=== PATIENT | female | born 1985 | race Caucasian/White ===

== ENCOUNTER → 2016-07-29 | Outpatient (CLI) | payer OTHER | LOC: MW.CHOBGYN 15:23 | PROVIDERS: ATTEND Nurse Practitioner Women's Health | DX: R39.9 Unspecified symptoms and signs involving the genitourinary system (principal) | CPT/HCPCS: 81001 ==

== ENCOUNTER → 2016-08-20 | Outpatient (CLI) | payer OTHER ==
[2016-08-20 10:37] LABS: CHLORIDE,CL 107 mmol/L (98-110); SODIUM,NA 137 mmol/L (136-146)
[2016-08-26 15:03] LABS: HPV 16 Not Detected (NOTDET); HPV 18 Not Detected (NOTDET)
== END ==
LOC: MW.CHOBGYN 09:18
PROVIDERS: ATTEND Nurse Practitioner Women's Health
DX: Z12.4 Encounter for screening for malignant neoplasm of cervix (principal); E66.01 Morbid (severe) obesity due to excess calories; N91.5 Oligomenorrhea, unspecified
CPT/HCPCS: 36415; 80053; 80061; 82627; 82670; 83001; 83002; 84144; 84146; 84402; 84443; 84703; 85025; 87624; G0145

== ENCOUNTER 2016-09-06 17:37 | Emergency (ER) | payer OTHER ==
--- NOTE | 2016-09-06 19:21 | EDM.PDOC ---
ED HPI Trauma - General Chief Complaint: Lower Extremity Injury/Pain Stated Complaint: PT HAS ENLARGE RT LEG CALF Time Seen by Provider: 09/06/16 17:42 Source: Reports: Patient History Limitations: Reports: No limitations - History of Present Illness INITIAL COMMENTS - FREE TEXT/NARRATIVE: History of present illness: [30-year-old female presenting with acute pain to right leg. Patient indicates that she has recently started control is concerned that it could be a blood clot.] Review of systems: As per history of present illness and below otherwise all systems reviewed and negative. Past medical history: As per history of present illness and as reviewed below otherwise noncontributory. Surgical history: As per history of present illness and as reviewed below otherwise noncontributory. Social history: No reported history of drug or alcohol abuse. Family history: As per history of present illness and as reviewed below otherwise noncontributory. Physical exam: HEENT: Atraumatic, normocephalic, pupils reactive, negative for conjunctival pallor or scleral icterus, mucous membranes moist, throat clear, neck supple, nontender, trachea midline. Lungs: Clear to auscultation, breath sounds equal bilaterally, chest nontender. Heart: S1S2, regular, negative for clicks, rubs, or JVD. Abdomen: Soft, nondistended, nontender. Negative for masses or hepatosplenomegaly. Negative for costovertebral tenderness. Pelvis: Stable nontender. Genitourinary: Deferred. Rectal: Deferred. Extremities: Atraumatic, negative for cords or calf pain. Neurovascular unremarkable. Neuro: Awake, alert, oriented. Cranial nerves II through XII unremarkable. Cerebellum unremarkable. Motor and sensory unremarkable throughout. Exam nonfocal. Other than as noted in history of present illness, Global assessment is benign patient does have pain while dorsiflexing the foot at an angle the patient indicates she's has consistent pain in the leg even when not manipulating it so it's not a clear Homans sign Diagnostics: [ venous Doppler of right lower Ravi lucia] Therapeutics: [] Impression: [Muscle] Plan: [OTC's, ice/heat/elevation] Definitive disposition and diagnosis as appropriate pending reevaluation and review of above. Allergies/ADRs: Allergies No Known Allergies Allergy (Verified 09/06/16 18:15) Home Medications: Ambulatory Orders Levonorgestrel-Ethin Estradiol [Falmina-28 Tablet] 1 each PO DAILY 09/06/16 [ Confirmed 09/06/16] Past Medical History - Past Health History Medical/Surgical History: Denies Medical/Surgical History Social & Family History - Family History Family Medical History: Noncontributory - Tobacco Use Smoking Status *Q: Current Every Day Smoker Years of Tobacco use: 10 Packs/Tins Daily: 1 Second Hand Smoke Exposure: No - Recreational Drug Use Recreational Drug Use: No Drug Use in Last 12 Months: No Review of Systems - Review of Systems Review Of Systems: See Below (History of present illness) Trauma Exam - Physical Exam Exam: See Below (History of present illness) Course - Vital Signs Last Recorded V/S: Last Vital Signs Temp 36.4 C 09/06/16 18:17 Pulse 68 09/06/16 18:17 Resp 18 09/06/16 18:17 BP 135/79 09/06/16 18:17 Pulse Ox 97 09/06/16 18:17 - Orders/Labs/Meds Orders: Active Orders 24 hr Category Date Time Status Venous Doppler Lwr Ext Rt [US] Stat Exams 09/06/16 18:21 Taken Departure - Departure Time of Disposition: 20:15 Disposition: Home, Self-Care 01 Condition: good Clinical Impression: Pain of right calf Forms: ED Department Discharge Additional Instructions: The following information is given to patients seen in the emergency department who are being discharged to home. This information is to outline your options for follow-up care. We provide all patients seen in our emergency department with a follow-up referral. The need for follow-up, as well as the timing and circumstances, are variable depending upon the specifics of your emergency department visit. If you don't have a primary care physician on staff, we will provide you with a referral. We always advise you to contact your personal physician following an emergency department visit to inform them of the circumstance of the visit and for follow-up with them and/or the need for any referrals to a consulting specialist. The emergency department will also refer you to a specialist when appropriate. This referral assures that you have the opportunity for follow-up care with a specialist. All of these measure are taken in an effort to provide you with optimal care, which includes your follow-up. Under all circumstances we always encourage you to contact your private physician who remains a resource for coordinating your care. When calling for follow-up care, please make the office aware that this follow-up is from your recent emergency room visit. If for any reason you are refused follow-up, please contact the [facility] Emergency Department at and asked to speak to the emergency department charge nurse. Followup with PCP 1-2 day Return to ED as needed as discussed [facility] [address] [place] [phone] - My Orders Last 24 Hours: My Active Orders 09/06/16 18:21 Venous Doppler Lwr Ext Rt [US] Stat - Assessment/Plan Last 24 Hours: My Active Orders 09/06/16 18:21 Venous Doppler Lwr Ext Rt [US] Stat
[2016-09-06 20:46] VITALS: BP 127/65
--- NOTE | 2016-09-09 09:52 | US ---
EXAM DATE: 09/06/16 PATIENT'S AGE: 30 Patient: FAZAL CHONG Facility: [place], [place] Site . Site : 1985 Study: US Extremity Right [id number]/14/2017 7:49:00 PM Ordering Physician: Doctor Espinosa Final Report: INDICATION: Right leg pain TECHNIQUE: Ultrasound venous duplex lower right extremity. Compression venous exam was performed using plasencia-scale, color Doppler, and spectral Doppler imaging. COMPARISON: 11/07/2014 FINDINGS: Sonographic imaging demonstrates the right common femoral, deep femoral, superficial femoral, popliteal, posterior tibial and greater saphenous veins to be fully compressible with normal color Doppler blood flow. IMPRESSION: Normal right lower extremity venous ultrasound, no sign of deep venous thrombosis. Dictated by Sumit Hernández MD @ 09/06/2016 8:05:41 PM Dictated by: Sumit Hernández MD @ 09/06/2016 20:05:48 (Electronic Signature) Report Signed by Proxy and Original Signed Document filed in the Medical Record. MTDD
== END 2016-09-06 21:01 | disposition home or self-care (01) ==
LOC: MW.ED 17:37
DX: M79.661 Pain in right lower leg (principal); F17.210 Nicotine dependence, cigarettes, uncomplicated; Z79.899 Other long term (current) drug therapy
CPT/HCPCS: 93971-26-RT; 93971-RT; 99282; 99283-25

== ENCOUNTER 2020-08-03 09:53 | Inpatient (IN) | payer MEDICAID ==
[2020-08-03] MEDS ORDERED: Sodium Chloride 0.9% 10 ML Syringe FLUSH PRN (10:04)
[2020-08-03] MEDS ORDERED: Citric Acid/Sodium Citrate Solution 30 ML Cup PO ONE (10:04)
[2020-08-03] MEDS ORDERED: Sodium Chloride 0.9% 10 ML SDV IV PRN (10:04)
[2020-08-03] MEDS ORDERED: Sodium Chloride 0.9% 2.5 ML Syringe FLUSH PRN (10:04)
[2020-08-03] MEDS ORDERED: Oxytocin/0.9 % Sodium Chloride 30 UNIT/500 ML BAG IV SCH (10:15)
[2020-08-03] MEDS: Lactated Ringers 1,000 ML IV SCH ×5 (10:18→22:34)
--- NOTE | 2020-08-03 11:09 | PCM.PREANE ---
Preanesthetic Assessment - Anesthesia/Transfusion/Family Hx Anesthesia History: Prior Anesthesia Without Reaction Other Type of Anesthesia Reaction Comment: Denies any known problem with last c- section, no known family hx: problems Family History of Anesthesia Reaction: No Transfusion History: No Prior Transfusion(s) - Physical Assessment NPO Status Date: 08/03/20 NPO Status Time: 00:05 Height: 1.7 m Weight: 115.212 kg ASA Class: 2 - Lab Values: Laboratory Last Values WBC 10.60 K/uL (4.0-11.0) 08/03/20 10:18 RBC 4.40 M/uL (4.30-5.90) 08/03/20 10:18 Hgb 12.2 g/dL (12.0-16.0) 08/03/20 10:18 Hct 37.8 % (36.0-46.0) 08/03/20 10:18 MCV 85.9 fL (80.0-98.0) 08/03/20 10:18 MCH 27.7 pg (27.0-32.0) 08/03/20 10:18 MCHC 32.3 g/dL (31.0-37.0) 08/03/20 10:18 RDW Std Deviation 48.9 fl (28.0-62.0) 08/03/20 10:18 RDW Coeff of Annalee 16 % (11.0-15.0) H 08/03/20 10:18 Plt Count 258 K/uL (150-400) 08/03/20 10:18 MPV 10.30 fL (7.40-12.00) 08/03/20 10:18 Nucleated RBC % 0.0 /100WBC 08/03/20 10:18 Nucleated RBCs # 0 K/uL 08/03/20 10:18 - Allergies Allergies/Adverse Reactions: Allergies Allergy/AdvReac Type Severity Reaction Status Date / Time No Known Allergies Allergy Verified 08/03/20 10:00 - Acknowledgements Anesthesia Type Planned: Spinal Pt an Appropriate Candidate for the Planned Anesthesia: Yes Alternatives and Risks of Anesthesia Discussed w Pt/Guardian: Yes Pt/Guardian Understands and Agrees with Anesthesia Plan: Yes PreAnesthesia Questionnaire - Past Health History Medical/Surgical History: Denies Medical/Surgical History HEENT History: Reports: None Cardiovascular History: Reports: None Respiratory History: Reports: Other (See Below) Other Respiratory History: pneumonia after last c/section Gastrointestinal History: Reports: Other (See Below) Other Gastrointestinal History: occasional heartburn with Genitourinary History: Reports: None DIRECTOR VIDEO History: Reports: Polycystic Ovaries, Musculoskeletal History: Reports: Fracture Other Musculoskeletal History: hx fx collarbone Neurological History: Reports: Other (See Below) Other Neuro History: essential tremors Psychiatric History: Reports: Anxiety Endocrine/Metabolic History: Reports: Diabetes, Gestational, Obesity/BMI 30+ Hematologic History: Reports: None Immunologic History: Reports: None Oncologic (Cancer) History: Reports: None Dermatologic History: Reports: None - Infectious Disease History Infectious Disease History: Reports: Chicken Pox, Influenza - Past Surgical History Head Surgeries/Procedures: Reports: None HEENT Surgical History: Reports: None Cardiovascular Surgical History: Reports: None Respiratory Surgical History: Reports: None GI Surgical History: Reports: None Female Surgical History: Reports: Section Endocrine Surgical History: Reports: None Neurological Surgical History: Reports: None Musculoskeletal Surgical History: Reports: None Oncologic Surgical History: Reports: None Dermatological Surgical History: Reports: None - SUBSTANCE USE Tobacco Use Status *Q: Never Tobacco User Second Hand Smoke Exposure: No - HOME MEDS Home Medications: Home Meds Docusate Sodium [Colace] 100 mg PO DAILY PRN 07/26/20 [History] Vits #93/Iron Fum/FA [ Formula Tablet] 1 each PO DAILY 07/26/20 [History] Sertraline [Zoloft] 25 mg PO BEDTIME 07/26/20 [History] metFORMIN [Glucophage] 500 mg PO DAILY 07/26/20 [History] Calcium Carbonate [Tums] 1 tab.chew CHEW ASDIRECTED PRN 07/27/20 [History]
[2020-08-03] MEDS ORDERED: ceFAZolin 2 GM in Premix Bag 1 BAG IV ONE (11:50)
[2020-08-03] MEDS ORDERED: Lanolin 100% Cream 7 GM Tube TOP PRN (13:48)
[2020-08-03] MEDS ORDERED: Oxytocin 10 Units/1 ML SDV IM PRN (13:48)
[2020-08-03] MEDS ORDERED: Bisacodyl 10 MG Supp RECTAL PRN (13:48)
[2020-08-03] MEDS ORDERED: Methylergonovine 0.2 MG/1 ML Amp IM PRN (13:48)
[2020-08-03] MEDS ORDERED: Misoprostol 200 MCG Tab RECTAL PRN (13:48)
[2020-08-03] MEDS ORDERED: Tranexamic Acid 1,000 MG in Sodium Chloride 0.9% 100 ML IV PRN (13:48)
[2020-08-03] MEDS ORDERED: Ondansetron 4 MG/2 ML SDV IVPUSH PRN (13:48)
[2020-08-03] MEDS ORDERED: Oxytocin/Lactated Ringers 30 UNIT/500 ML BAG IV SCH (14:00)
[2020-08-03] MEDS ORDERED: Ketorolac 30 MG/ML SDV IVPUSH SCH (14:00)
[2020-08-03] MEDS ORDERED: Dextrose 5%-Lactated Ringers 1,000 ML IV SCH (14:15)
--- NOTE | 2020-08-03 15:35 | PCM.POSTAN ---
POST ANESTHESIA ASSESSMENT - MENTAL STATUS Mental Status: Alert, Oriented - RESPIRATORY Respiratory Status: Respiratory Rate WNL, Airway Patent, O2 Saturation Stable - CARDIOVASCULAR CV Status: Pulse Rate WNL, Blood Pressure Stable - GASTROINTESTINAL GI Status: No Symptoms - PAIN Pain Score: 0 - POST OP HYDRATION Hydration Status: Adequate & Stable - OBSERVATIONS Free Text/Narrative:: The patient is awake, alert, and in no acute distress. There were no apparent anesthetic complications at this time. Discharge per criteria.
[2020-08-03] MEDS: Ketorolac 30 MG/ML SDV IVPUSH SCH (20:04)
[2020-08-03] MEDS: Docusate Sodium 100 MG Cap PO SCH (20:05)
--- NOTE | 2020-08-03 20:56 | PCM.OPNOTE ---
- General Post-Op/Procedure Note Date of Surgery/Procedure: 08/03/20 Operative Procedure(s): Tertiary Lower segment transverse Findings: Live male delivered at 1250pm , weight 3510g 8/9 Pre Op Diagnosis: 34yo @ 39w0d with tertiary . GDMA 2. Rubella equivocal Post-Op Diagnosis: same Anesthesia Technique: Spinal Primary Surgeon: Gabriela Powers Anesthesia Provider: Ulisses Case Traffic Control Flagger: Rula Pfeiffer Pathology: Placenta Fluid Replacement, Intraop: 1,000 EBL in mLs: 500 Complications: None Condition: Good Free Text/Narrative:: Intake & Output 08/03/20 08/03/20 08/03/20 06:59 14:59 22:59 Intake Total 1999 Output Total 250 Balance 2000 -250
[2020-08-03] MEDS: diphenhydrAMINE 50 MG/ML SDV IVPUSH PRN (20:57)
[2020-08-04] MEDS: Ketorolac 30 MG/ML SDV IVPUSH SCH ×3 (02:06→13:06)
[2020-08-04] MEDS: diphenhydrAMINE 50 MG/ML SDV IVPUSH PRN (02:41)
--- NOTE | 2020-08-04 08:10 | PCM48HPAN ---
Post Anesthesia Note - EVALUATION WITHIN 48HRS OF ANESTHETIC Vital Signs in Normal Range: Yes Patient Participated in Evaluation: Yes Respiratory Function Stable: Yes Airway Patent: Yes Cardiovascular Function Stable: Yes Hydration Status Stable: Yes Pain Control Satisfactory: Yes Nausea and Vomiting Control Satisfactory: Yes Mental Status Recovered: Yes Vital Signs: Last Vital Signs Temp 36.1 C 08/04/20 04:20 Pulse 77 08/04/20 06:50 Resp 16 08/04/20 06:50 BP 107/54 L 08/04/20 04:20 Pulse Ox 99 08/04/20 06:50
--- NOTE | 2020-08-04 08:29 | OR ---
SURGEON: DANO SUNSHINE DATE OF PROCEDURE: 08/03/2020 PREOPERATIVE DIAGNOSES: 1. A 34-year-old, G4, P 3-0-0-3, desiring a tertiary section. 2. Gestational diabetes mellitus A2. 3. Rubella equivocal. POSTOPERATIVE DIAGNOSES: 1. A 34-year-old, G4, P 3-0-0-3, desiring a tertiary section. 2. Gestational diabetes mellitus A2. 3. Rubella equivocal. PROCEDURE Tertiary lower segment section ANAESTHESIA Spinal ESTIMATED BLOOD LOSS: 500. IV FLUIDS: 1000. URINE OUTPUT: 100. COMPLICATIONS None NOTES AND FINDINGS: A live male delivered at 12:50 p.m. score of 8 and 9. Weight is 3510 g. BRIEF HISTORY ABOUT THE PATIENT: She is a 34-year-old, G4, P 3-0-0-3, who is under Dr. Key's care. The patient was covered for because of an emergency, so a was scheduled with Dr. Sunshine. She has history of PCOS, on metformin; had GDM A2, controlled on metformin, which she started prior to . She was scheduled for a tertiary . She was explained the risks, benefits, and alternatives, and she desired to proceed. DESCRIPTION OF PROCEDURE: The patient was taken to the operating room where spinal anesthesia was performed without difficulty. She was prepared and draped in the dorsal supine position with a leftward tilt. A Pfannenstiel skin incision was made with a scalpel and carried down to the fascia with the Bovie. The fascia was incised and extended upwards and laterally. The fascia was from the rectus muscle without any difficulty. The abdomen was entered with careful dissection of the peritoneum. The peritoneum once entered into was extended upwards and outwards via manual retraction. The lower uterine segment was noted. The Antonio retractor was placed in to help expose the lower uterine segment. The bladder reflection was then dissected off the lower uterine segment. A lower uterine incision was made and incision was extended upwards and outwards. The fetus was in cephalic position and was brought to the level of the incision. With fundal pressure, the was delivered without difficulty. The cord was clamped and cut. The infant was handed over to the awaiting hardware technician. The placenta was delivered via manual massage of the uterine fundus. The uterus was then cleaned with laparotomy sponges. The incision was closed in 2 layers, first layer with 0 Vicryl, second layer with 0 Monocryl. The adnexa were inspected, noted to be normal. The Antonio was removed. The bladder blade was placed in with the Blank retractor to expose the lower uterine segment. The incision was inspected with tension and without tension. The incision was noted once again to be hemostatic. The retractor was then removed. The fascia was then closed with 0 Vicryl in a continuous fashion. The subcutaneous fat was closed with a plain gut and the skin was closed with 3-0 Monocryl on a Raymond needle. The incision was then overlaid with a IRA dressing. All instrument and pad counts were correct x2. The patient tolerated the procedure and was taken to the recovery room in stable condition. CAMILA DONALD /[id number] MARVIN
[2020-08-04] MEDS: Docusate Sodium 100 MG Cap PO SCH ×2 (08:58→21:36)
--- NOTE | 2020-08-04 14:11 | PCM.PNPP ---
- General Info Date of Service: 08/04/20 Admission Dx/Problem (Free Text): section Subjective Update: 34yo s/p , POD1 , ambulating , good pain control , normal lochia Functional Status: Reports: Pain Controlled, Tolerating Diet, Ambulating, Urinating - Review of Systems General: Reports: No Symptoms HEENT: Reports: No Symptoms Pulmonary: Reports: No Symptoms Cardiovascular: Reports: No Symptoms Gastrointestinal: Reports: No Symptoms Genitourinary: Reports: No Symptoms Musculoskeletal: Reports: No Symptoms Skin: Reports: No Symptoms Neurological: Reports: No Symptoms Psychiatric: Reports: No Symptoms - General Info Date of Service: 08/04/20 - Patient Data Vital Signs - Most Recent: Last Vital Signs Temp 36.1 C 08/04/20 04:20 Pulse 70 08/04/20 13:00 Resp 16 08/04/20 13:00 BP 107/54 L 08/04/20 08:00 Pulse Ox 97 08/04/20 13:00 Weight - Most Recent: 115.212 kg I&O - Last 24 Hours: Intake & Output 08/03/20 08/04/20 08/04/20 22:59 06:59 14:59 Intake Total 1000 Output Total 250 2625 500 Balance 750 -2625 -500 Lab Results - Last 24 Hours: Laboratory Results - last 24 hr 08/03/20 08/04/20 08/04/20 Range/Units 10:18 05:05 05:05 Hgb 9.6 L (12.0-16.0) g/dL Hct 29.3 L (36.0-46.0) % Fasting Glucose 71 L (74-106) mg/dL RPR Non-Reac (Non-Reac) - Infant Interaction Support Person: - Recovery Exam Fundal Tone: Firm Fundal Level: 1 Fingerbreadths Below Umbilicus Fundal Placement: Midline Lochia Amount: Scant Lochia Color: Rubra/Red Perineum Description: Intact, Minimal Bruising/Swelling Episiotomy/Laceration: None Bladder Status: Indwelling Catheter in Place Urinary Elimination: Other (see below) Other Urinary Elimination, : roth d/c @0420, due to void - Exam General: Alert HEENT: Pupils Equal Neck: Supple Lungs: Clear to Auscultation Cardiovascular: Regular Rate, Regular Rhythm GI/Abdominal Exam: Normal Bowel Sounds Extremities: Normal Inspection Wound/Incisions: Dressing Dry and Intact Neurological: No New Focal Deficit Psy/Mental Status: Alert, Normal Affect, Normal Mood - Problem List & Annotations (1) delivery delivered SNOMED Code(s): 925741797 Code(s): O82 - ENCOUNTER FOR DELIVERY WITHOUT INDICATION Status: Acute Current Visit: Yes - Problem List Review Problem List Initiated/Reviewed/Updated: Yes - My Orders Last 24 Hours: My Active Orders 08/03/20 13:48 Patient Status [ADT] Routine Ambulate [RC] PER UNIT ROUTINE May Shower [RC] ASDIRECTED Notify Provider Intake and Out [RC] ASDIRECTED Notify Provider Vital Signs [RC] ASDIRECTED RT Incentive Spirometry [RC] Q2HWA Acetaminophen/oxyCODONE [Percocet 325-5 MG] 1 tab PO Q4H PRN Acetaminophen/oxyCODONE [Percocet 325-5 MG] 2 tab PO Q4H PRN Ibuprofen [Motrin] 800 mg PO Q8H PRN Lanolin [Lansinoh HPA] See Dose Instructions TOP ASDIRECTED PRN Methylergonovine [Methergine] 0.2 mg IM ONETIME PRN Ondansetron [Zofran] 4 mg IVPUSH Q4H PRN Oxytocin [Pitocin] 10 unit IM ASDIRECTED PRN Tranexamic Acid [Cyklokapron] 1,000 mg Sodium Chloride 0.9% [Normal Saline] 100 ml IV ONETIME bisacodyL [Dulcolax] 10 mg RECTAL ONETIME PRN diphenhydrAMINE [Benadryl] 25 mg IVPUSH Q6H PRN miSOPROStoL [Cytotec] 1,000 mcg RECTAL ONETIME PRN Assess Lochia [WOMSER] Per Unit Routine Assess Uterine Involution [WOMSER] Per Unit Routine Breast Pump [WOMSER] Per Unit Routine Peripheral IV Discontinue [OM.PC] Routine Sequential Compression Device [OM.PC] Per Unit Routine Resuscitation Status Routine 08/03/20 13:49 Antiembolic Devices [RC] PER UNIT ROUTINE 08/03/20 14:00 Lactated Ringers [Ringers, Lactated] 1,000 ml IV ASDIRECTED Oxytocin/Lactated Ringers [Pitocin in LR 30 Units/500 ML] 30 unit in 500 ml IV TITRATE 08/03/20 14:15 Dextrose 5%-Lactated Ringers 1,000 ml IV ASDIRECTED 08/03/20 21:00 Docusate Sodium [Colace] 100 mg PO BID - Assessment Assessment:: 34yo s/p Tertiary , POD1 , GDMA2 , Anemia - Plan Plan:: Routine care Pain control Iron prescribed Incentive spirometry SCD in bed
[2020-08-04] MEDS: Acetaminophen/oxyCODONE 325-5 MG Tab PO PRN ×2 (17:49→21:45)
[2020-08-04] MEDS: Ferrous Sulfate 325 MG Tab PO SCH (17:49)
[2020-08-04] MEDS: metFORMIN 500 MG Tab PO SCH (17:51)
[2020-08-04] MEDS: Ibuprofen 800 MG Tab PO PRN (20:05)
[2020-08-04] MEDS ORDERED: Sertraline 25 MG Tab PO SCH (21:00)
[2020-08-05] MEDS: Acetaminophen/oxyCODONE 325-5 MG Tab PO PRN ×3 (02:16→12:13)
[2020-08-05] MEDS: Ibuprofen 800 MG Tab PO PRN ×2 (05:23→13:16)
[2020-08-05 07:42] VITALS: BP 108/60; PULSE 70
--- NOTE | 2020-08-05 08:32 | PCM.PNPP ---
- General Info Date of Service: 08/05/20 Functional Status: Reports: Pain Controlled, Tolerating Diet, Ambulating, Urinating - Review of Systems General: Reports: No Symptoms HEENT: Reports: No Symptoms Pulmonary: Reports: No Symptoms Cardiovascular: Reports: No Symptoms Gastrointestinal: Reports: No Symptoms Genitourinary: Reports: No Symptoms Musculoskeletal: Reports: No Symptoms Skin: Reports: No Symptoms Neurological: Reports: No Symptoms Psychiatric: Reports: No Symptoms - Patient Data Vital Signs - Most Recent: Last Vital Signs Temp 36.2 C 08/05/20 07:20 Pulse 70 08/05/20 07:20 Resp 16 08/05/20 07:20 BP 108/60 08/05/20 07:20 Pulse Ox 98 08/05/20 07:20 Weight - Most Recent: 254 lb Lab Results - Last 24 Hours: Laboratory Results - last 24 hr 08/03/20 Range/Units 10:18 RPR Non-Reac (Non-Reac) Med Orders - Current: Current Medications Bisacodyl (Bisacodyl 10 Mg Supp) 10 mg RECTAL ONETIME PRN PRN Reason: Constipation Diphenhydramine HCl (Diphenhydramine 50 Mg/Ml Sdv) 25 mg IVPUSH Q6H PRN PRN Reason: Itching or Nausea Last Admin: 08/04/20 02:41 Dose: 25 mg Documented by: Docusate Sodium (Docusate Sodium 100 Mg Cap) 100 mg PO BID [facility] Last Admin: 08/04/20 21:36 Dose: 100 mg Documented by: Emollient Ointment (Lanolin 100% Cream 7 Gm Tube) 0 gm TOP ASDIRECTED PRN PRN Reason: Sore Nipples Ferrous Sulfate (Ferrous Sulfate 325 Mg Tab) 325 mg PO BIDMEALS [facility] Last Admin: 08/04/20 17:49 Dose: 325 mg Documented by: Oxytocin/Sodium Chloride (Oxytocin 30 Unit/500 Ml-Ns) 30 unit in 500 mls @ 250 mls/hr IV TITRATE [facility] Lactated Ringer's (Ringers, Lactated) 1,000 mls @ 500 mls/hr IV BOLUS [facility] Last Admin: 08/03/20 11:35 Dose: 999 mls/hr Documented by: Lactated Ringer's (Ringers, Lactated) 1,000 mls @ 125 mls/hr IV ASDIRECTED [facility] Last Admin: 08/03/20 22:34 Dose: 125 mls/hr Documented by: Oxytocin/Lactated Ringer's (Pitocin In Lr 30 Units/500 Ml) 30 unit in 500 mls @ 2 mls/hr IV TITRATE [facility]; Protocol Tranexamic Acid 1,000 mg/ (Sodium Chloride) 110 mls @ 660 mls/hr IV ONETIME PRN PRN Reason: Bleeding Dextrose/Lactated Ringer's (Dextrose 5%-Lactated Ringers) 1,000 mls @ 200 mls/hr IV ASDIRECTED [facility] Last Admin: 08/03/20 14:13 Dose: 200 mls/hr Documented by: Ibuprofen (Ibuprofen 800 Mg Tab) 800 mg PO Q8H PRN PRN Reason: mild pain or fever Last Admin: 08/05/20 05:23 Dose: 800 mg Documented by: Metformin HCl (Metformin 500 Mg Tab) 500 mg PO BIDMEALS [facility] Last Admin: 08/04/20 17:51 Dose: 500 mg Documented by: Methylergonovine Maleate (Methylergonovine 0.2 Mg/1 Ml Amp) 0.2 mg IM ONETIME PRN PRN Reason: Excessive Vaginal Bleeding Misoprostol (Misoprostol 200 Mcg Tab) 1,000 mcg RECTAL ONETIME PRN PRN Reason: excessive bleeding Ondansetron HCl (Ondansetron 4 Mg/2 Ml Sdv) 4 mg IVPUSH Q4H PRN PRN Reason: Nausea/Vomiting Last Admin: 08/03/20 18:31 Dose: 4 mg Documented by: Oxycodone/Acetaminophen (Acetaminophen/Oxycodone 325-5 Mg Tab) 1 tab PO Q4H PRN PRN Reason: Pain (moderate 4-6) Last Admin: 08/05/20 06:57 Dose: 1 tab Documented by: Oxycodone/Acetaminophen (Acetaminophen/Oxycodone 325-5 Mg Tab) 2 tab PO Q4H PRN PRN Reason: Pain (moderate 4-6) Last Admin: 08/04/20 17:49 Dose: 2 tab Documented by: Oxytocin (Oxytocin 10 Units/1 Ml Sdv) 10 unit IM ASDIRECTED PRN PRN Reason: Excessive Vaginal Bleeding Sertraline HCl (Sertraline 25 Mg Tab) 25 mg PO BEDTIME [facility] Last Admin: 08/04/20 21:36 Dose: 25 mg Documented by: Sodium Chloride (Sodium Chloride 0.9% 10 Ml Syringe) 10 ml FLUSH ASDIRECTED PRN PRN Reason: Keep Vein Open Sodium Chloride (Sodium Chloride 0.9% 2.5 Ml Syringe) 2.5 ml FLUSH ASDIRECTED PRN PRN Reason: Keep Vein Open Sodium Chloride (Sodium Chloride 0.9% 10 Ml Sdv) 10 ml IV ASDIRECTED PRN PRN Reason: IV Use Discontinued Medications Citric Acid/Sodium Citrate (Citric Acid/Sodium Citrate Solution 30 Ml Cup) 30 ml PO ONETIME ONE Stop: 08/03/20 10:05 Cefazolin Sodium/Dextrose 2 gm (/ Premix) 50 mls @ 100 mls/hr IV ONETIME ONE Stop: 08/03/20 12:19 Ketorolac Tromethamine (Ketorolac 30 Mg/Ml Sdv) 30 mg IVPUSH Q6H [facility]INA Stop: 08/04/20 14:01 Ketorolac Tromethamine (Ketorolac 30 Mg/Ml Sdv) 30 mg IVPUSH Q6H [facility] Stop: 08/04/20 13:31 Last Admin: 08/04/20 13:06 Dose: 30 mg Documented by: - Interaction Support Person: - Recovery Exam Fundal Tone: Firm Fundal Level: 2 Fingerbreadths Below Umbilicus Fundal Placement: Midline Lochia Amount: Scant Lochia Color: Rubra/Red Perineum Description: Intact, Minimal Bruising/Swelling Episiotomy/Laceration: None Bladder Status: Voiding Urinary Elimination: Voided Other Urinary Elimination, : roth d/c @0420, due to void - Exam General: Alert, Oriented, Cooperative, No Acute Distress HEENT: Pupils Equal, Pupils Reactive Neck: Supple, Trachea Midline Lungs: Normal Respiratory Effort GI/Abdominal Exam: Soft, Non-Tender, No Distention Extremities: Normal Inspection, Normal Range of Motion, Non-Tender, No Pedal Edema Skin: Warm, Dry, Intact Wound/Incisions: Dressing Dry and Intact Neurological: No New Focal Deficit Psy/Mental Status: Alert, Normal Affect, Normal Mood - Problem List Review Problem List Initiated/Reviewed/Updated: Yes - My Orders Last 24 Hours: My Active Orders 08/04/20 21:00 Sertraline [Zoloft] 25 mg PO BEDTIME - Assessment Assessment:: 34yo s/p repeat , POD2 , GDMA2 , Anemia - Plan Plan:: Pain controlled Mild anemia, bleeding currently light. Iron prescribed Stool softeners PRN Incentive spirometry Stable for discharge home. Reviewed post op care instructions. Removal of IRA and incision check in 1 week with .
[2020-08-05] MEDS: Docusate Sodium 100 MG Cap PO SCH (08:39)
[2020-08-05] MEDS: metFORMIN 500 MG Tab PO SCH (08:40)
[2020-08-05] MEDS: Ferrous Sulfate 325 MG Tab PO SCH (08:40)
== END 2020-08-05 13:45 | disposition home or self-care (01) | DRG 788 ==
LOC: MW.OB 09:53
PROVIDERS: ADMIT Obstetrics & Gynecology; ATTEND Obstetrics & Gynecology
PROC: 10D00Z1 Extraction of Products of Conception, Low, Open Approach (ICD-10-PCS; principal; 2020-08-03)
DX: O34.211 Maternal care for low transverse scar from previous cesarean delivery (principal); Z3A.39 39 weeks gestation of pregnancy; Z37.0 Single live birth; O24.429 Gestational diabetes mellitus in childbirth, unspecified control; O99.02 Anemia complicating childbirth; D64.9 Anemia, unspecified; O99.344 Other mental disorders complicating childbirth; F41.9 Anxiety disorder, unspecified; F32.9 Major depressive disorder, single episode, unspecified
CPT/HCPCS: 36415; 51702; 82947; 82962; 85014; 85018; 85027; 86592; 86850; 86900; 86901; A9270-GY; J1200; J1885; J2405; J7120; J7121

== ENCOUNTER 2024-12-29 21:12 | Emergency (ER) | payer BC ==
[2024-12-29] MEDS ORDERED: Sodium Chloride 0.9% 10 ML Syringe FLUSH PRN (21:28)
[2024-12-29] MEDS ORDERED: Sodium Chloride 0.9% 2.5 ML Syringe FLUSH PRN (21:28)
[2024-12-29 21:44] LABS: BASOPHILS ABSOLUTE AUTO 0.08 K/uL (0.00-0.20); BASOPHILS PERCENT AUTO 0.7 % (0.0-1.0); EOSINOPHILS ABSOLUTE AUTO 0.11 K/uL (0.00-0.45); EOSINOPHILS PERCENT AUTO 0.9 % (0.0-6.0); IMMATURE GRAN ABSOLUTE AUTO 0.03 K/uL (0.00-0.05); IMMATURE GRAN PERCENT AUTO 0.3 % (0.0-0.4); LYMPHOCYTES ABSOLUTE AUTO 4.16 K/uL (1.00-4.80); LYMPHOCYTES PERCENT AUTO 34.9 % (24.0-44.0); MEAN PLATELET VOLUME 9.2 fL (9.4-12.3); MONOCYTES ABSOLUTE AUTO 0.60 K/uL (0.00-0.80); MONOCYTES PERCENT AUTO 5.0 % (0.0-8.0); NEUTROPHILS ABSOLUTE AUTO 6.95 K/uL (1.80-7.70); NEUTROPHILS PERCENT AUTO 58.2 % (41.0-71.0); NRBC ABSOLUTE 0.00 K/uL (0.00-0.02); NRBC PERCENT 0.0 /100WBC (0.0-0.2); PLATELET COUNT,PLT 296 K/uL (150-400); RED BLOOD CELL COUNT 4.75 M/uL (4.10-5.30); WHITE BLOOD CELL COUNT,WBC 11.93 K/uL (3.9-11.3)
[2024-12-29 22:12] LABS: A/G RATIO 1.1 (0.9-1.6); ALANINE AMINOTRANSFERASE,ALT 24.0 IU/L (14-63); ASPARTATE AMNIOTRANSFERASE,AST 20.0 IU/L (15-37); BILIRUBIN TOTAL 0.2 mg/dL (0.2-1.0); BLOOD UREA NITROGEN,BUN 8.0 mg/dL (7.0-18.0); CARBON DIOXIDE,CO2 21.3 mmol/L (21.0-32.0); CHLORIDE,CL 103.0 mmol/L (98-107); CREATININE 0.8 mg/dL (0.6-1.0); EST CRCL DRUG DOSING (CG) 89.99 mL/min; GLUCOSE RANDOM 106.0 mg/dL (74-106); POTASSIUM,K 3.2 mmol/L (3.5-5.1); PROTEIN TOTAL,TP 6.7 g/dL (6.4-8.2); SODIUM,NA 134.0 mmol/L (136-145)
[2024-12-29 22:15] LABS: ESTIMATED GFR 95.0 mL/min (>60)
[2024-12-29] MEDS: Iopamidol 755 Mg/ML 100 ML Bottle IVPUSH ONE (22:51)
[2024-12-29] MEDS: Potassium Chloride 20 MEQ Tab.ER PO ONE (23:27)
[2024-12-29 23:38] VITALS: BP 109/81; PULSE 78
== END 2024-12-29 23:26 | disposition home or self-care (01) ==
LOC: MW.ED 21:12
DX: R55 Syncope and collapse (principal); R20.2 Paresthesia of skin; Z79.899 Other long term (current) drug therapy
CPT/HCPCS: 36415; 70450; 70496; 70498; 80053; 82947; 83690; 83735; 84484; 85025; 93005; 96360; 99284; A9270; J7030; Q9967; 93010